=== PATIENT | female | born 1955 | race Caucasian/White ===

== ENCOUNTER 2017-02-27 09:48 | Emergency (ER) | payer OTHER ==
[2017-02-27 10:29] VITALS: BP 117/59
--- NOTE | 2017-02-27 10:45 | UC ---
Upper Extremity HPI - HPI Summary HPI Summary: HAS HAD RIGHT ARM PAIN AND WEAKNESS FOR A COUPLE OF WEEKS. NO TRAUMA OR INJURY. LAST NIGHT DEVELOPED SOME PAIN IN RIGHT ANTERIOR CHEST. NO RADIATION. NO SOB, NO SWEATS. MAY HAVE HAD SOME NAUSEA BUT THINKS IT COULD BE DUE TO ANXIETY. PAIN IS WORSE WHEN SHE MOVES HER ARM AROUND. - History of Current Complaint Chief Complaint: UCChestPain Stated Complaint: ARM AND CHEST PAIN Time Seen by Provider: 02/27/17 10:33 Hx Obtained From: Patient Onset/Duration: Gradual Onset, Lasting Weeks, Still Present Severity Initially: Moderate Severity Currently: Moderate Pain Intensity: 5 Pain Scale Used: 0-10 Numeric Location Of Pain: Is Discrete @ - RIGHT ANTERIOR SHOULDER Aggravating Factor(s): Movement Alleviating Factor(s): Rest Associated Signs And Symptoms: Positive: Weakness Related History: Dominant Hand Right - Allergies/Home Medications Allergies/Adverse Reactions: Allergies Allergy/AdvReac Type Severity Reaction Status Date / Time No Known Allergies Allergy Verified 02/27/17 09:58 Home Medications: Home Medications ALPRAZolam TAB* [Xanax TAB*] 1 mg PO BEDTIME 02/27/17 [History Confirmed ] Cholecalciferol [Vitamin D] 1 tab PO DAILY 02/27/17 [History Confirmed 02/27/17] Doxepin HCl (Sleep) [Silenor] 2 tab PO BEDTIME 02/27/17 [History Confirmed 02/27] Omalizumab (NF) [Xolair (NF)] 1 inj IM SEE INSTRUCTIONS 02/27/17 [History Confirmed 02/27/17] [place]-3 Fatty Acids [Fish Oil] 2 tab PO BEDTIME 02/27/17 [History Confirmed 03/09] PMH/Surg Hx/FS Hx/Imm Hx Previously Healthy: Yes - Surgical History Surgical History: None - Family History Known Family History: Negative: Cardiac Disease - Social History Alcohol Use: None Substance Use Type: None Smoking Status (MU): Former Smoker Review of Systems Constitutional: Negative Skin: Negative Respiratory: Negative Cardiovascular: Negative Gastrointestinal: Negative Musculoskeletal: Arthralgia, Myalgia All Other Systems Reviewed And Are Negative: Yes Physical Exam Triage Information Reviewed: Yes Appearance: Well-Appearing, No Pain Distress, Well-Nourished Vital Signs: Initial Vital Signs Temp 98.6 F 02/27/17 09:51 Pulse 66 02/27/17 09:51 Resp 16 02/27/17 09:51 BP 117/59 02/27/17 09:51 Pulse Ox 95 02/27/17 09:51 Vital Signs Reviewed: Yes Eyes: Positive: Conjunctiva Clear ENT: Positive: Hearing grossly normal Neck: Positive: Supple Respiratory Exam: Normal Cardiovascular Exam: Normal Abdomen Description: Positive: Soft Musculoskeletal: Positive: ROM Intact, No Edema, Other: - TTP RIGHT ANTERIOR SHOULDER. POSITIVE SPEEDS AND YERGASONS Neurological: Positive: Alert Psychological: Positive: Age Appropriate Behavior Skin: Negative: rashes Diagnostics - EKG Cardiac Rate: NL - 64BPM Cardiac Rhythm: Sinus: Normal Ectopy: None ST Segment: Normal Upper Extremity Course/Dx - Differential Dx/Diagnosis Provider Diagnoses: 1. RIGHT BICEPS TENDONITIS. 2. RIGHT CHEST WALL PAIN Discharge - Discharge Plan Condition: Stable Disposition: HOME Prescriptions: Naproxen [Naproxen EC] 500 mg PO BID PRN #30 tab PRN Reason: Pain Patient Education Materials: Tendinitis (ED), Chest Wall Pain (ED) Referrals: Sandy Rivero MD [Primary Care Provider] - 1 Week Additional Instructions: What is biceps tendinopathy? Biceps tendinopathy is a condition that can cause pain in the front of the shoulder. Doctors use the term biceps tendinopathy when people have a problem with their biceps tendon. The biceps is the muscle in the front of the upper arm. Tendons are strong bands of tissue that connect muscles to bones. In most people with biceps tendinopathy, the tendons are not inflamed or swollen. If they do get inflamed or swollen, doctors call it tendinitis. What causes biceps tendinopathy? This condition can happen as people get older , especially if they do a lot of work or activity with their arms overhead. Tendinitis can happen if people hurt their upper arm or shoulder, or do the same movements over and over. What are the symptoms of biceps tendinopathy? The most common symptoms are: Pain in the front of the shoulder The pain is usually worse at night and with lifting, pulling, or reaching overhead. Trouble moving the upper arm and shoulder People with tendinitis can also have swelling. Sometimes, an injured tendon tears. This can cause a sudden pop, pain, bruising , or swelling. Will I need tests? You might. Your doctor or nurse will talk with you and do an exam. He or she might also do an imaging test, such as an ultrasound or MRI scan. Imaging tests create pictures of the inside of the body. How is biceps tendinopathy treated? Most of the time, this condition will get better on its own, but it can take weeks to months to heal completely. For the first few days or weeks of your symptoms, you can try the following steps to see if you feel better: Rest your arm and shoulder Avoid lifting or reaching overhead. Try to keep your arm down, close to, and in front of your body. If you find you need to keep your arm still and close to your body for a while, do some pendulum swings (described below) from time to time. This will help keep you from getting too stiff. Ice the painful area Put a cold gel pack, bag of ice, or bag of frozen vegetables on the injured area every 1 to 2 hours, for 15 minutes each time, as needed. Put a thin towel between the ice (or other cold object) and your skin. Take medicine to reduce the swelling and pain To treat pain, you can take acetaminophen(sample brand name: Tylenol). Your doctor might also recommend that you take a nonsteroidal anti-inflammatory drug or NSAID. NSAIDs are a group of medicines that includes ibuprofen (sample brand names: Advil, Motrin) and naproxen (sample brand names: Aleve, Naprosyn). If your symptoms dont improve with these treatments, your doctor or nurse might recommend that you have physical therapy (work with an exercise expert). He or she might also recommend that you do exercises at home. The following shoulder exercises can help stretch your shoulder and keep it from getting too stiff: Pendulum swing Let your arm relax and hang down, while you sit or stand. Move your arm back and forth, then side to side, and then around in small circles. Try to do this exercise for 5 minutes, 1 or 2 times a day. Your doctor might suggest that you hold a weight in your hand when doing the exercise to make it harder. Wall walk Face a wall, and stand close enough so that you can touch the wall with your fingertips. Stretch out your arm, parallel to the floor, and put your fingertips on the wall. Then walk your fingers up the wall until you feel mild soreness or aching. Keep your shoulders level (do not shrug them). Try to do this exercise for 5 minutes, 2 or 3 times a day When you do these exercises, its important to: Warm up your shoulder first by taking a hot shower or bath, or putting a heating pad on it. Start slowly and make the exercises harder over time. Know that some soreness is normal. If you have sharp or tearing pain, stop what youre doing and let your doctor or nurse know. What if my symptoms dont get better? If your symptoms dont get better, talk with your doctor or nurse about other possible treatments, such as: Getting a shot of medicine into the painful area Surgery When will I be able to do my usual activities again? You can return to your usual activities when you are able to move your arm in all directions without pain. To avoid hurting yourself, restart your activities or sports slowly. REFERRAL FOR PT PROVIDED TODAY. SLING FOR COMFORT. GO TO THE ER WITHOUT FAIL IF YOU DEVELOP CHEST PAIN, SHORTNESS OF BREATH, NAUSEA , SWEATS, DIZZINESS OR ANY OTHER CONCERNING SYMPTOMS.
== END 2017-02-27 10:55 | disposition home or self-care (01) ==
LOC: UCEAST 09:48
DX: M75.21 Bicipital tendinitis, right shoulder (principal); R07.89 Other chest pain; Z87.891 Personal history of nicotine dependence
CPT/HCPCS: 93005; 99213; G0463